=== PATIENT | female | born 1990 | race Caucasian/White ===

== ENCOUNTER 2017-07-23 20:58 | Emergency (ER) | payer SELFPAY ==
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
== END 2017-07-23 22:05 | disposition still patient (30) ==
LOC: ER 20:58
DX: F11.10 Opioid abuse, uncomplicated (principal)
CPT/HCPCS: Z7502